=== PATIENT | female | born 2005 ===

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

== ENCOUNTER 2023-01-22 10:54 | Outpatient (CLI) | payer OTHER | END 2023-01-22 11:45 | disposition home or self-care (01) | LOC: PRENATAL 10:54 | PROVIDERS: ATTEND Obstetrics & Gynecology Maternal & Fetal Medicine | DX: O26.849 Uterine size-date discrepancy, unspecified trimester (principal); O36.8199 Decreased fetal movements, unspecified trimester, other fetus; Z3A.32 32 weeks gestation of pregnancy ==